=== PATIENT | male | born 1950 | race Caucasian/White ===

== ENCOUNTER 2019-06-03 09:43 | Outpatient (CLI) | payer MEDICARE, BC, SELFPAY ==
--- NOTE | 2019-06-03 10:04 | ECG_ITS ---
NAME OF STUDY: LEXISCAN SESTAMIBI STRESS TEST INDICATION: SHORTNESS OF BRATH; CDL LISCENSURE NOTE: Please note that this is the electrocardiogram portion of the Lexiscan/Sestamibi stress test. The perfusion scan will be documented separately. DATA: Baseline heart rate was 54 beats per minute. Baseline blood pressure was 154/91 millimeters of mercury. Target heart rate was 152. Maximum heart rate achieved was 75. which was 49 % of the predicted target heart rate. Maximum blood pressure was 154/91 millimeters of mercury. The reason for ending the test was completion of the protocol. The patient did not experience any symptoms. ELECTROCARDIOGRAM: BASELINE: Sinus bradycardia. Normal axis. Otherwise, no ST-T changes suggestive of ischemia noted. No arrhythmia noted. EXERCISE: After Lexiscan injection, no ST-T changes suggestive of ischemic noted. No arrhythmia noted. 1. EKG not suggestive of ischemia 2. Lexiscan injection unremarkable. 3. Perfusion scan will be documented separately. Electronically Signed On 06-03-2019 19:45:29 CHANGE MANAGEMENT ANALYST by Goldie Cortes M.D. [id number]
--- NOTE | 2019-06-03 10:04 | NMCV_ITS ---
NM michelle perf SPECT r/s* [id number] Cristian Bernardo Age: 68 Gender: M : 1950 Exam Date: 06/03/2019 10:57 Ordering Phys: Goldie Cortes MD ([email or web address]) Technologist: CLEM Corral Exam Location: [facility] Indications: SHORTNESS OF BREATH STRESS TEST Please [facility] IMAGE PROTOCOL Rest/Stress 1 Lexiscan Day Radiopharmaceutical Dose (mCi) Administration Site Administered by Rest: Tc-99m 11.0 IV CLEM Corral Sestamibi Stress:Tc-99m 32.6 IV CLEM Ny Sestamibi Rest: 03-Jun-2019 60 Discovery 630 Stress: 03-Jun-2019 30 Discovery 630 0.4mg Lexiscan. Images obtained in supine and prone position. SPECT RESULTS Technical Quality: Excellent Raw Data Analysis: Normal Image Corrections: No attenuation or motion correction applied Summed Stress Score: 1 Summed Rest Score: 3 Summed Difference Score: 0 PERFUSION FINDINGS Large area of patchy decreased tracer uptake noted in basal to distal inferior and inferolateral wall on the rest images which showed mild to moderate reversibility over stress images suggestive of old myocardial infarction surrounded by mild to moderate roxana-infarct ischemia in the RCA territory. FUNCTIONAL RESULTS (calculated via Gated SPECT) Stress Image LV EF (%): 62 Stress EDV (mL):114 TID: 1.03 Stress ESV (mL):43 Rest Image LV EF (%): 62 FUNCTIONAL FINDINGS: There is normal left ventricular systolic function. IMPRESSIONS Medium-size area of mild to moderate roxana-infarct ischemia noted in basal to distal inferior wall suggestive of lesion in RCA territory. EKG segment will be documented separately. Goldie Cortes MD (Electronically Signed) Final Date: 03 June 2019 17:58 S
--- NOTE | 2019-06-03 10:05 | PC.NURSE ---
STRESS TEST NOTE WHEN DOING THE INTAKE ASSESSMENT ON THE PATIENT HE STATES THAT HE DID NOT HOLD HIS BETA LEEANN PRIOR TO TODAY'S EXERCISE STRESS TEST. HE SAID HE GOT HIS MEDICATIONS CONFUSED AND WASN'T SURE WHAT TO HOLD. HE DID IN FACT HOLD CAFFEINE X 24 HOURS. HE ALSO STATES THAT HE HAS BEEN EXPERIENCING HIP AND KNEE PAIN AND HE DID NOT THINK THAT HE WAS GOING TO BE ABLE TO WALK ON THE TREADMILL ANYWAY. DR SEAY WAS NOTIFIED IN PERSON IN THE FOAM GUN OPERATOR AND NEW ORDERS WERE RECEIVED TO CHANGE THE STRESS TEST FROM AN EXERCISE SESTAMIBI STRESS TEST TO A LEXISCAN SESTAMIBI STRESS TEST. THE PATIENT VERBALIZED HIS UNDERSTANDING AND WISHES TO PROCEED.
--- NOTE | 2019-06-03 12:12 | SUR.PREOP ---
Patient reports no pain or discomfort prior to the start of the procedure.
[2019-06-03] MEDS: regadenoson 0.4 Mg/5 ml Syringe IVP (12:19)
[2019-06-03 12:28] VITALS: BP 122/77; PULSE 65
== END 2019-06-03 09:44 | disposition home or self-care (01) ==
LOC: CDL 09:45
PROVIDERS: Family Provider Nurse Practitioner Family; PCP Nurse Practitioner Family; Visit Provider Internal Medicine Cardiovascular Disease
DX: R06.02 Shortness of breath (principal); R00.1 Bradycardia, unspecified; Z02.4 Encounter for examination for driving license
CPT/HCPCS: 78452; 93017; A9500; J2785

== ENCOUNTER → 2019-06-22 07:07 | Day surgery (SDC) | payer MEDICARE, BC, SELFPAY ==
[2019-06-22] VITALS (11 sets, daily range): BP systolic 117–160; BP diastolic 71–97; PULSE 50–64; RESP 16–18; TEMP 36.8; O2SAT 90–95; BMI 35.4
--- NOTE | 2019-06-22 | XACV_ITS ---
Ht: 173 cm Wt: 101 kg BSA: 2.24 m2 Gender: Male : 1950 Any Known Allergies: No known allergies Exam Priority: Routine Procedure(s): Procedure Description: Diagnostic procedure Procedure Description: Left ventriculography Procedure Description: Venous Graft Catheterization Procedure Description: Coronary Angiography Diagnostic Cath Status: Elective Diagnostic Findings LM has 0% stenosis. LAD has 0% stenosis. pCIRC to mCIRC: Severe 100% stenosis, APRIL: 0 flow. RPAV to CIRC AV: Severe 95% stenosis, chronic total occlusion, APRIL: 2 flow. Two grafts visualized. SVG to 2nd OM: patent. SVG to dRCA: 100% stenosis, APRIL: 0 flow. Coronary angiography shows right dominance. PCI Status: Elective Conclusions There is severe coronary artery disease with two vessel disease. one graft patent, and one graft diseased. Patient has prior CABG. Normal left ventricular systolic function. Ejection fraction of 65%. #1 Left main is normal #2 LAD has luminal irregularity with patent proximal and mid stent with mild in-stent restenosis, good APRIL-3 flow was observed#3 chronically occluded left circumflex#4 patent RCA with chronically subtotally occluded PLB, patent previously placed stent in the RCAGrafts#1 SVG to RCA chronically occluded#2 SVG to circumflex patent#3 MCGILL atretic . Please note that for abnormal stress test and clearance dot patient underwent coronary angiogram with history of bypass surgery. Recommendations Continue current medical management and risk factor modification. Diagnostic RX Recommendation: medical therapy and/or counseling Ejection Fraction: 65.0 % Pressures Phase:Rest AO : 126 mmHg / 70 mmHg ( 91 mmHg ) @ 5:21:00 AM 111 mmHg / 64 mmHg ( 85 mmHg ) @ 5:38:00 AM 109 mmHg / 63 mmHg ( 84 mmHg ) @ 5:38:00 AM LV : 108 mmHg / 18 mmHg / @ 5:37:00 AM 109 mmHg / 14 mmHg / @ 5:38:00 AM 107 mmHg / 9 mmHg / @ 5:38:00 AM Valves Phase:DefaultPhase AV : 0.0 mmHg @ 11:03:28 AM AV Mean Gradient: 0.0 mmHg @ 11:03:28 AM 0.0 mmHg @ 11:03:28 AM Clinical Evaluation EBL: 5mL-10mL Procedural Details Procedure Consent Obtained. Pre-Procedure Time Out. Identified patient by full name and date of as verbalized by the patient/guarantor. Does the consent match the physician's order: Yes. Accurate & Complete Informed Consent: Yes. Inpatient/Outpatient History & Physical on Chart: Yes. If H&P is completed, is and addenduem needed: No; If yes, is the addendum complete: N/A. Visualize and Verify Site with Patient/Guarantor: N/A. Relevant Radiology Images available: Yes. Pre-op teaching completed and patient verbalized understanding. The risks, benefits, and alternatives of sedation and/or procedure were discussed by physician. The patient agrees to continue. Procedure started. Correct patient, site and procedure confirmed by cath team. Current diagnosis: Stable angina. PERRLA. 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 Lungs clear x 5 lobes. IV Site on Arrival: 20 gauge in the left forearm. IV Fluids: 0.9% NaCl at KVO. 0 mL infused prior to catheterization laboratory technician. Pre Procedural Pulses: bilateral dorsalis pedis was 2+. Pre Procedural Pulses: bilateral posterior tibial was 1+. Pre Procedural Pulses: bilateral radial was 2+. Oxygen started at 2liters/min via nasal canula. bilateral groins was prepped with chloroprep then draped in the usual sterile fashion. Physician notified. Baseline sample Acquired. HR: 55 BPM. Physician arrived. Equipment: 6F - Radial. Cardiac Cath Pack. ACIST Manifold Kit Model BT 2000. Heparinized Saline (2 units/mL), 1000 mL bag. Physician scrubbed in. Immediate Pre-Procedure Time Out. Correct Patient: Yes; Correct Procedure: Yes; Correct Site: Yes; Correct Patient Position: Yes; Correct Supplies: Yes; Dried Flammable Prep: Yes; Blood Products Available: No;. Lidocaine 1% infiltrated to the right groin. Arterial access obtained. A 6 saudi arabian JL4 catheter in over wire. Multiple views taken of left coronary artery. Catheter out. A 6 [place]abian JR4 catheter in over wire. Multiple views taken of right coronary artery. Catheter redirected to the Grafts. SVG to RCA occluded. SVG to Circumflex occluded. A 6 saudi arabian Angled Pig catheter in over wire. EDP Sample taken: LV 108/18,18; HR: 53 BPM; SpO2: 95%. LV gram performed in FRANCO @ 10 mL/second for a total of 30 mL. EDP Sample taken: LV 109/14,21; HR: 64 BPM; SpO2: 96%. Pullback taken: LV 107/9,19; AO 111/64(85); Mean: 0mmHg, Peak to Peak: 0mmHg, SEP: 4sec/min; HR: 64 BPM; SpO2: 95%. Groin shot taken. Sheath pulled. Sheath(s) removed and manual pressure held until hemostasis was achieved. Sterile 4x4 and Op-site applied to the puncture site. No oozing or hematoma noted. Post sheath removal instructions were given and the patient verbalized understanding. Post Procedure: Pulses reassessed and unchanged. PERRLA. 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 No VTE prophylaxis required. Post-op diagnosis: Multivessel CAD. Complications: None. Estimated blood loss: 5mL-10mL. Contrast type used: Omnipaque 300 mgI/mL, 500 mL bottle. Procedure completed. Patient transferred by bed to CPRU. Vital chart was stopped. Medication's Wasted: Lidocaine 1% = 10 mL. Medication's Wasted: Heparin = 1000 units. Total IV fluids: 100 mL. Site: Right Femoral artery Sheath Size: 6 Fr Hemostasis Success: Unsuccessful Procedure Medications Start: 10:12 AM Stop: 10:12 AM Medication: Versed Amount: 1 mg Route: I.V. Start: 10:12 AM Stop: 10:12 AM Medication: Fentanyl Amount: 50 mcg Route: I.V. Start: 10:19 AM Stop: 10:19 AM Medication: Versed Amount: 1 mg Route: I.V. Start: 10: AM Stop: 10: AM Medication: Fentanyl Amount: 50 mcg Route: I.V. I, the attending physician, have reviewed and verified all procedure medications. Yes, all medications given per verbal order History/Risk Factors Hypertension: Yes Dyslipidemia: Yes Peripheral Arterial Disease (PAD): No Myocardial Infarction (NC): No Obesity: Yes Renal Disease: No Tobacco Use: Former Prior Interventions PCI: Yes CABG: Yes Valve Surgery: No Report Signatures Finalized by:Goldie Cortes MD on 07/01/2019 10:28:16 AM
[2019-06-22 08:02] LABS: Basophils # 0.1 10^3/uL (0.0-0.1); Basophils % 0.6 %; Eosinophils # 0.2 10^3/uL (0.0-0.8); Eosinophils % 2.7 %; Hematocrit 49.4 % (42.0-52.0); Hemoglobin 16.8 g/dL (11.7-16.6); Lymphocytes % 36.4 %; Mean Corpuscular Hemoglobin 30.8 pg (28.0-34.0); Mean Corpuscular Volume 90.6 fL (80-94); Mean Platelet Volume 10.1 fL (7.4-10.4); Monocytes # 0.8 10^3/uL (0.2-0.9); Monocytes % 9.9 %; Neutrophils # 4.1 10^3/uL (1.8-7.7); Neutrophils % 50.3 %; Nucleated Red Blood Cells % 0 %; Platelet Count 312 10^3/cmm (130-400); Red Blood Count 5.45 10^6/uL (4.1-5.3); White Blood Count 8.2 10^3/uL (4.0-10.0)
[2019-06-22 08:16] LABS: Anion Gap 15.4 (5-19); Blood Urea Nitrogen 18 mg/dL (8-23); Calcium 9.8 mg/dL (8.5-10.5); Carbon Dioxide 25 mmol/L (22-29); Chloride 103 mmol/L (98-107); Glomerular Filtration Rate 83.9 mL/min (90-130); Glucose 139 mg/dL (65-115); Osmolality Calculated 287 mOsm/kg (285-295); Potassium 4.4 mmol/L (3.5-5.1); Sodium 139 mmol/L (136-145)
[2019-06-22 08:47] LABS: INR 0.96 (0.8-1.2)
[2019-06-22] MEDS: diphenhydrAMINE 50 mg Capsule PO (09:13)
--- NOTE | 2019-06-22 09:55 | PC.NURSE ---
Procedure cancelled Dr Cortes in to talk with patient about procedure and symptoms. Dr Cortes states he wants to hold off on [facility] at this time and treat patient medically with symptoms reported and to follow up with him in 2 months. Pt updated, all questions answered.
--- NOTE | 2019-06-22 09:56 | PM.SDS ---
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 Stress test showed abnormality in the inferior region. 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 It is the reason patient is here. He has been explained all risk benefit and alternative for the procedure. He understands risk of stroke bleeding Home Meds/Allergies Home Medications and Allergies Home Medications Medication Instructions Recorded Confirmed Type amlodipine 10 mg tablet 10 mg PO DAILY 05/13/19 06/22/19 History aspirin 81 mg tablet,delayed 81 mg PO DAILY 05/13/19 06/22/19 History release clopidogrel 75 mg tablet 75 mg PO DAILY 05/13/19 06/22/19 History lisinopril 20 mg tablet 20 mg PO DAILY 05/13/19 06/22/19 History metformin 500 mg tablet 1,000 mg PO BID tab 05/13/19 06/22/19 History metoprolol succinate 25 mg 25 mg PO DAILY 05/13/19 06/22/19 History tablet,extended release 24 hr omeprazole 20 mg capsule,delayed 20 mg PO DAILY 05/13/19 06/22/19 History release rosuvastatin 10 mg tablet 10 mg PO DAILY 05/13/19 06/22/19 History Allergies Allergy/AdvReac Type Severity Reaction Status Date / Time No Known Allergies Allergy Unverified 05/13/19 10:51 PFSH Acute PFSH: Medical History Bradycardia Diabetes mellitus Dyslipidemia HTN (hypertension) Surgical History S/P CABG (coronary artery bypass graft) S/P PTCA (percutaneous transluminal coronary angioplasty) Family History Brother Heart disease Sister Diabetes Mother Stroke Father Cancer Social History Smoking and tobacco status: former smoker History of recent travel: No Vitals/I&O/Wt Last Vital Signs Temp 98.2 F 06/22/19 08:06 Pulse 60 06/22/19 08:06 Resp 18 06/22/19 08:06 BP 160/92 06/22/19 08:06 Pulse Ox 95 06/22/19 08:06 Weight last 48 hrs Weight 233 lb Physical Exam Narrative: EXAM NARRATIVE: GENERAL: Patient is alert, awake and oriented x3. NECK: No jugular vein distension. HEENT: No cyanosis. No icterus. No pallor. HEART: Regular S1 and S2. No murmur, rub or gallop. LUNGS: Clear to auscultate bilaterally. ABDOMEN: Soft, nontender and nondistended. Positive bowel sounds. No guarding, rebound or tenderness. CENTRAL NERVOUS SYSTEM: Grossly nonfocal. EXTREMITIES: Lower extremities without edema bilaterally. SSS Data Data Completed and Pending: Pending at discharge Category Date Time Status CARE MANAGEMENT ASSOCIATE request for service Routin e Exams 06/22/19 07:44 Ordered Diagnoses at Discharge Discharge Diagnosis (1) Bradycardia: Status: Acute Problem details: Patient remained asymptomatic and stable. Continue to monitor (2) HTN (hypertension): Status: Acute Problem details: Optimally controlled continue to manage and monitor Qualifiers: Hypertension type: essential hypertension Qualified Code(s): I10 - Essential (primary) hypertension (3) Abnormal stress test: Status: Acute Problem details: Patient has abnormal stress test with mild to moderate ischemia in the inferior wall of the left ventricle. 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 He is high risk for acute coronary syndrome and arrhythmia. We will proceed with left heart cath today. (4) S/P PTCA (percutaneous transluminal coronary angioplasty): Status: Acute Discharge Plan Discharge Prescriptions: No Action amlodipine 10 mg tablet 10 mg PO DAILY RF: 0 aspirin [Adult Low Dose Aspirin] 81 mg tablet,delayed release (DR/EC) 81 mg PO DAILY RF: 0 rosuvastatin [Crestor] 10 mg tablet 10 mg PO DAILY RF: 0 lisinopril 20 mg tablet 20 mg PO DAILY RF: 0 metoprolol succinate 25 mg tablet extended release 24 hr 25 mg PO DAILY RF: 0 omeprazole 20 mg capsule,delayed release(DR/EC) 20 mg PO DAILY RF: 0 clopidogrel [Plavix] 75 mg tablet 75 mg PO DAILY RF: 0 metformin 500 mg tablet 1,000 mg PO BID RF: 0 Coding Level of Care Code Acute Tool Design Engineer for [facility] Fwd Diagnoses Bradycardia R00.1 HTN (hypertension) I10 Hypertension type: essential hypertension Abnormal stress test R94.39 S/P PTCA (percutaneous transluminal coronary angioplasty) Z98.61
--- NOTE | 2019-06-22 09:58 | PC.NURSE ---
Procedure back on Dr Cortes states that procedure has to be done for DOT clearance. Procedure back on.
== END | disposition home or self-care (01) ==
PROVIDERS: Family Provider Nurse Practitioner Family; PCP Nurse Practitioner Family; Visit Provider Internal Medicine Cardiovascular Disease
DX: R00.1 Bradycardia, unspecified (principal); I10 Essential (primary) hypertension; R94.39 Abnormal result of other cardiovascular function study; Z95.5 Presence of coronary angioplasty implant and graft; Z95.1 Presence of aortocoronary bypass graft; Z79.82 Long term (current) use of aspirin; E11.9 Type 2 diabetes mellitus without complications; Z79.84 Long term (current) use of oral hypoglycemic drugs; E78.5 Hyperlipidemia, unspecified; Z82.49 Family history of ischemic heart disease and other diseases of the circulatory system; Z83.3 Family history of diabetes mellitus
CPT/HCPCS: 12345; 36415; 80048; 85025; 85610; 93459; C1769; C1887; C1894; J1644; J2001; J2250; J3010; J7030; Q0163; Q9967

== ENCOUNTER → 2019-06-29 13:16 | Outpatient (BNVA) | payer MEDICARE, BC, SELFPAY | PROVIDERS: Family Provider Nurse Practitioner Family; PCP Nurse Practitioner Family; Visit Provider Nurse Practitioner Family | DX: R94.39 Abnormal result of other cardiovascular function study (principal) | CPT/HCPCS: 80048 ==

== ENCOUNTER 2021-05-18 06:45 | Outpatient (CLI) | payer MEDICARE, BC, SELFPAY ==
[2021-05-18 07:26] VITALS: BMI 33.4
--- NOTE | 2021-05-18 08:09 | NMCV_ITS ---
NM michelle perf SPECT r/s* [id number] Cristian Bernardo Age: 70 Gender: M : 1950 Exam Date: 05/18/2021 08:11 Ordering Phys: Symone Mac Technologist: CLEM Corral Exam Location: [facility] Indications: ISCHEMIC HEART DISEASE STRESS TEST Please see separate stress test report in [facility] for full findings IMAGE PROTOCOL Rest/Stress 1 Lexiscan Day Radiopharmaceutical Dose (mCi) Administration Site Administered by Rest: Tc-99m 10.7 IV CLEM Ny Sestamibi Stress:Tc-99m 32.9 IV CLEM Ny Sestamibi Rest: 18-May-2021 60 Discovery 630 Stress: 18-May-2021 30 Discovery 630 0.4mg Lexiscan. Images obtained in supine and prone position. SPECT RESULTS Technical Quality: Excellent Raw Data Analysis: Normal Image Corrections: No attenuation or motion correction applied Summed Stress Score: 4 Summed Rest Score: 2 Summed Difference Score: 3 PERFUSION FINDINGS There is small in size, partially reversible perfusion defect seen in the inferior and inferolateral renae. This is consistent with prior infarct with roxana-infarct ischemia in LCx and RCA territories FUNCTIONAL RESULTS (calculated via Gated SPECT) Stress Image LV EF (%): 65 Stress EDV (mL):106 TID: 0.99 Stress ESV (mL):37 FUNCTIONAL FINDINGS: There is normal left ventricular systolic function. IMPRESSIONS 1. Abnormal myocardial perfusion imaging with small sized prior infarct with periinfarct ischemia noted in the LCx/RCA territories 2. LV systolic function is normal Star Ortega MD (Electronically Signed) Final Date: 20 May 2021 12:48 S
--- NOTE | 2021-05-18 08:09 | ECG_ITS ---
[facility] Test Date: 2021-05-18 Pat Name: Cristian Bernardo Department: Room: Gender: Male Disability Benefits Specialist: Lore Lrason : 1950 Requested By: Symone Mac Order Number: [id number] Jeremi MD: Star Ortega M.D. Interpretive Statements NAME OF STUDY: LEXISCAN SESTAMIBI STRESS TEST INDICATION: [dot physical, hx of cabg, cad, pci, ] Procedure: At the baseline, the blood pressure was 140/99 mmHg with a heart rate of 59 bpm. The electrocardiogram showed normal sinus rhythm, normal axis with normal ST and T's. The Lexiscan was infused over a period of 20 seconds. A total of 0.4 mg of Lexiscan was infused. The stress phase was continued for a total of 5 minutes. Heart rate was at the end of stress phase was 69 bpm and a blood pressure of 170/103 mmHg. The EKG at the peak infusion revealed since normal sinus rhythm with no significant ST-T wave changes. Sestamibi was injected 20 seconds after the Lexiscan infusion. Blood pressure at the end of recovery phase was 160/97 mmHg with a heart rate of 64 bpm. Conclusion: 1. Normal EKG response to Lexiscan infusion 2. No Lexiscan induced chest pain or cardiac arrhythmia. 3. Normal blood pressure and heart rate response. 4. Sestamibi/sestamibi perfusion scan pending; see separate report. Electronically Signed On 05-23-2021 17:58:01 LEATHER CLEANER by Star Ortega M.D. [id number]
[2021-05-18] MEDS: regadenoson 0.4 Mg/5 ml Syringe IVP (08:40)
[2021-05-18 08:52] VITALS: BP 160/97; PULSE 63
== END 2021-05-18 06:46 | disposition home or self-care (01) ==
LOC: RAD 06:48 → CDL 06:55
PROVIDERS: Visit Provider Nurse Practitioner Family
DX: I25.10 Atherosclerotic heart disease of native coronary artery without angina pectoris (principal); Z95.1 Presence of aortocoronary bypass graft
CPT/HCPCS: 78452; 93017; A9500; J2785

== ENCOUNTER → 2021-05-29 09:46 | Outpatient (BNVA) | payer MEDICARE, BC, SELFPAY | PROVIDERS: Visit Provider Internal Medicine Cardiovascular Disease | DX: I25.10 Atherosclerotic heart disease of native coronary artery without angina pectoris (principal); I10 Essential (primary) hypertension; E78.5 Hyperlipidemia, unspecified | CPT/HCPCS: 99213 ==

== ENCOUNTER → 2021-11-27 09:34 | Outpatient (BNVA) | payer MEDICARE, BC, SELFPAY | PROVIDERS: PCP Nurse Practitioner Family; Visit Provider Internal Medicine Cardiovascular Disease | DX: I25.10 Atherosclerotic heart disease of native coronary artery without angina pectoris (principal); E11.9 Type 2 diabetes mellitus without complications; I10 Essential (primary) hypertension; E78.5 Hyperlipidemia, unspecified; Z95.1 Presence of aortocoronary bypass graft; Z79.84 Long term (current) use of oral hypoglycemic drugs; Z87.891 Personal history of nicotine dependence | CPT/HCPCS: 99214 ==

== ENCOUNTER → 2022-05-28 09:49 | Outpatient (BNVA) | payer MEDICARE, BC, SELFPAY | PROVIDERS: PCP Nurse Practitioner Family; Visit Provider Internal Medicine Cardiovascular Disease | DX: I25.10 Atherosclerotic heart disease of native coronary artery without angina pectoris (principal); E11.9 Type 2 diabetes mellitus without complications; Z79.84 Long term (current) use of oral hypoglycemic drugs; I10 Essential (primary) hypertension; R94.39 Abnormal result of other cardiovascular function study; E78.5 Hyperlipidemia, unspecified; Z87.891 Personal history of nicotine dependence; Z95.1 Presence of aortocoronary bypass graft; Z79.82 Long term (current) use of aspirin | CPT/HCPCS: 99214 ==

== ENCOUNTER → 2022-12-10 09:39 | Outpatient (BNVA) | payer MEDICARE, BC, SELFPAY | PROVIDERS: PCP Nurse Practitioner Family; Visit Provider Internal Medicine Cardiovascular Disease | DX: I25.10 Atherosclerotic heart disease of native coronary artery without angina pectoris (principal); I10 Essential (primary) hypertension; E11.9 Type 2 diabetes mellitus without complications; E78.5 Hyperlipidemia, unspecified; R00.1 Bradycardia, unspecified; Z95.1 Presence of aortocoronary bypass graft; Z79.84 Long term (current) use of oral hypoglycemic drugs; Z87.891 Personal history of nicotine dependence | CPT/HCPCS: 99214 ==

== ENCOUNTER → 2023-06-19 10:41 | Outpatient (BNVA) | payer MEDICARE, BC, SELFPAY | PROVIDERS: PCP Nurse Practitioner Family; Visit Provider Internal Medicine Cardiovascular Disease | DX: I25.10 Atherosclerotic heart disease of native coronary artery without angina pectoris (principal); I10 Essential (primary) hypertension; R00.1 Bradycardia, unspecified; E78.5 Hyperlipidemia, unspecified; E11.9 Type 2 diabetes mellitus without complications; Z79.84 Long term (current) use of oral hypoglycemic drugs; Z87.891 Personal history of nicotine dependence | CPT/HCPCS: 99214 ==

== ENCOUNTER → 2023-12-24 09:11 | Outpatient (BNVA) | payer MEDICARE, BC, SELFPAY | PROVIDERS: PCP Nurse Practitioner Family; Visit Provider Internal Medicine Cardiovascular Disease | DX: I25.10 Atherosclerotic heart disease of native coronary artery without angina pectoris (principal); E78.5 Hyperlipidemia, unspecified; I10 Essential (primary) hypertension; R00.1 Bradycardia, unspecified; Z87.891 Personal history of nicotine dependence; Z95.1 Presence of aortocoronary bypass graft | CPT/HCPCS: 99214 ==

== ENCOUNTER → 2024-06-23 13:34 | Outpatient (BNVA) | payer MEDICARE, BC, SELFPAY | PROVIDERS: PCP Nurse Practitioner Family; Visit Provider Internal Medicine Cardiovascular Disease | DX: I25.10 Atherosclerotic heart disease of native coronary artery without angina pectoris (principal); I10 Essential (primary) hypertension; E78.5 Hyperlipidemia, unspecified; R00.1 Bradycardia, unspecified | CPT/HCPCS: 99214 ==